=== PATIENT | female | born 1990 | race African-American/Black ===

== ENCOUNTER 2017-03-05 10:21 | Emergency (ER) | payer MEDICAID, OTHER ==
[~2017-03-05] VITALS: Ht 170.2 cm; Wt 85.0 kg
[~2017-03-05 10:21] MED LIST: ALBUTEROL
[2017-03-05 10:36] VITALS: BP 129/88
== END 2017-03-05 14:25 | disposition left against medical advice (07) ==
LOC: ER 13:22
DX: R50.9 Fever, unspecified (principal); Z53.21 Procedure and treatment not carried out due to patient leaving prior to being seen by health care provider